=== PATIENT | male | born 1950 | race Caucasian/White ===

== ENCOUNTER 2017-07-24 07:06 | Day surgery (SDC) | payer MEDICARE ==
[2017-07-24 08:04] VITALS: BMI 38.9
[2017-07-24 08:21] VITALS: TEMP 97
[2017-07-24] MEDS ORDERED: Propofol 10 mg/ml Inj (20 ML) ONE (09:48)
[2017-07-24] MEDS ORDERED: Lactated Ringer's 500 ML IV SCH (10:15)
[2017-07-24 11:19] VITALS: O2SAT 98
[2017-07-24 11:21] VITALS: PULSE 68
[2017-07-24 11:39] VITALS: BP 152/82; RESP 20
== END 2017-07-24 11:30 | disposition home or self-care (01) ==
LOC: C.ENDO 07:06
PROVIDERS: ATTEND Internal Medicine Gastroenterology
DX: K21.9 Gastro-esophageal reflux disease without esophagitis (principal); K64.1 Second degree hemorrhoids; K20.8 Other esophagitis; B96.81 Helicobacter pylori [H. pylori] as the cause of diseases classified elsewhere
CPT/HCPCS: 43239; 45378; 82948; 88305; 88312; 88342; J2704; J3010; J7120